=== PATIENT | male | born 1970 | race Caucasian/White ===

== ENCOUNTER → 2018-04-23 | Outpatient (CLI) | payer OTHER ==
--- NOTE | 2018-04-23 10:28 | RAD ---
MRI left knee without contrast dated 04/23/2018. No comparison available. Clinical data indication: Knee pain after fall 3 weeks ago. TECHNIQUE: Routine multiplanar multisequence MR imaging was performed. FINDINGS: There is a linear hypointense line extending transversely across the medial tibial metaphysis to the central portion of the tibia. No definite complete extension across to the lateral side. There is patchy edema within the marrow of the proximal metaphysis and epiphysis. Extension to the posterior and anterior cortex. No displacement. Marrow signal is otherwise homogeneous. No significant degenerative changes. Articular cartilage is intact. Small suprapatellar joint effusion. No loose body. No significant popliteal cyst. Anterior cruciate and posterior cruciate ligaments intact. Medial and lateral collateral complexes are intact. Iliotibial band, popliteus tendon and pes anserine complex within normal limits. Quadriceps and patellar tendon are intact. No abnormality of the medial or lateral retinaculum. Horizontal oblique tear posterior horn of medial meniscus appears to extend to the tibial articular surface on 2 consecutive sagittal slices. Anterior horn is intact. Lateral meniscus normal in morphology and signal. IMPRESSION: 1. Incomplete nondisplaced transverse fracture through the medial aspect of the proximal tibial metaphysis. This could represent stress fracture or posttraumatic fracture. There is no apparent articular surface extension. 2. Horizontal oblique tear posterior horn/body of medial meniscus. 3. Small joint effusion. Electronically signed by: Herbert Magaña MD (04/23/2018 10:23 AM) [id number]
== END | disposition home or self-care (01) ==
LOC: MRI 08:48
PROVIDERS: ATTEND Family Medicine
DX: S82.55XA Nondisplaced fracture of medial malleolus of left tibia, initial encounter for closed fracture (principal); S83.242A Other tear of medial meniscus, current injury, left knee, initial encounter; W19.XXXA Unspecified fall, initial encounter; Y93.89 Activity, other specified; Y92.89 Other specified places as the place of occurrence of the external cause; Y99.8 Other external cause status
CPT/HCPCS: 73721